=== PATIENT | female | born 1965 | race Caucasian/White ===

== ENCOUNTER 2018-07-04 07:54 | Outpatient (CLI) | payer BC ==
[2018-07-04] MEDS ORDERED: Iopamidol 370 76% 50 ML VIAL FS ONE (10:42)
[2018-07-04] MEDS ORDERED: Iopamidol 370 76% 100 ML VIAL ONE (10:42)
--- NOTE | 2018-07-04 14:58 | NM ---
NUCLEAR MEDICINE PARATHYROID SCAN WITH SPECT: DATE: 07/04/2018. HISTORY: A 52-year-old female with primary hyperparathyroidism. TECHNIQUE: IV injection with 26.3 mCi of Technetium 99m-sestamibi. Immediate, 1 hour delayed, and 2 hour delaye d scintigraphy performed, including head, neck, and upper chest. Standard noncontrast CT performed, along with SPECT images obtained in coronal, sagittal, and axial p lanes. FINDINGS: The SPECT images demonstrate a small focus of high uptake at the region posterior to the upper pole o f the right lobe of the thyroid gland, corresponding to one of the several nodules demonstrated in th at region on the CT. There is also heterogeneously significantly increased uptake throughout the left lobe of the thyroid gland on the planar scintigraphic images, which the CT demonstrates to be occupied by heterogeneous t hyroid nodules. IMPRESSION: 1. One of the several small nodules posterior to the upper pole of the right lobe of the thyroid gla nd is a very good candidate for parathyroid adenoma. 2. Multinodular goiter mostly involving the left lobe of the thyroid gland. POS: DANY
--- NOTE | 2018-07-04 15:19 | CT ---
CT NECK WITH AND IWTHOUT CONTRAST: (parathyroid protocol) DATE: 07/04/2018. History A 52-year-old female with multinodular goiter and hyperparathyroidism. TECHNIQUE: Precontrast scan, 25 second delayed post contrast scan, and 65 second delayed post contrast scan, of the neck performed from a few centimeters inferior to the elijah to the C1-2 junction level. 120 mL o f Isovue 370. FINDINGS: There are multiple bilateral thyroid nodules. The ones on the left are more numerous and much larger . For example, there is an approximately 3 x 4.5 x 2.5 cm nodule with heterogeneous enhancement broa dly abutting the lower pole of the left lobe of the thyroid gland, which mildly displaces the upper t rachea to the right, and reaches the superior level of the clavicular heads. This could be one large nodule or several clustered nodules. It is favored to be one large nodule. Superior to that, there are multiple smaller nodules in the rest of the left lobe of the thyroid glan d. There are fewer and smaller nodules in the right lobe of the thyroid gland. Posterior to the right lobe of the thyroid gland, there are several small nodules. One of these has significantly increased uptake on the nuclear medicine sestamibi SPECT images, consistent with a para thyroid adenoma. Although there are several candidates in this particular location, the favored one is an approximately 0.5 x 1 x 1 cm nodule with no intrinsic iodine, and moderate enhancement, which a buts the right posterior surface of the cricophyngeus muscles at the level of the cricoarytenoid at t he C5-6 level (axial images 56 of 91, series 2; 56 of 91 series 5; 56 of 182, series 3; 56 of 91, ser ies 6; coronal images 53 of 108, series 704; 53 of 110, series 700; sagittal image 45 of 108, series 703). This is located just medial to the right common carotid artery and posterior to the upper pole of the right lobe of the thyroid gland. Another candidate, either one bilobed nodule or 2 nodules abutting each other, is located inferior to that, medial to the right common carotid artery, with an extension into the groove between the right side of the esophagus and the right longus colli muscle (axial images 51 of 91, series 2; 51 of 91, series 6; 51 of 182, series 3; 51 of 91, series 5; coronal image 52 of 110, series 700; sagittal imag e 48 of 110, series 701), measuring approximately 1.8 x 0.9 x 0.8 cm, in aggregate). IMPRESSION: 1. One of the several small nodules posterior to the upper pole of the right lobe of the thyroid gla nd is favored to be the parathyroid adenoma. 2. Multinodular goiter, left much greater than right. POS: DANY
== END 2018-07-04 07:55 | disposition home or self-care (01) ==
LOC: CT 07:54
PROVIDERS: ATTEND Otolaryngology Plastic Surgery within the Head & Neck
DX: E04.2 Nontoxic multinodular goiter (principal); E21.0 Primary hyperparathyroidism
CPT/HCPCS: 70492; 78072; A9500